=== PATIENT | female | born 1975 | race Caucasian/White ===

== ENCOUNTER 2024-03-10 01:02 | Emergency (ER) | payer SELFPAY ==
[2024-03-10] VITALS (7 sets, daily range): BP systolic 174–214; BP diastolic 91–119; PULSE 68–104; RESP 16–27; TEMP 36.6; O2SAT 95–97; BMI 32.5
--- NOTE | 2024-03-10 01:11 | ECG_ITS ---
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 Measurements Intervals [place] Rate: 70 P: 43 NV: 195 QRS: 25 QRSD: 85 T: 29 QT: 352 QTc: 381 Interpretive Statements SINUS RHYTHM POSSIBLE LEFT ATRIAL ENLARGEMENT [-0.1mV P-WAVE IN V1/V2] NONSPECIFIC T-WAVE ABNORMALITY No previous ECG available for comparison Electronically Signed On 03-11-2024 19:22:42 CDT by Samson Reed M.D. [id number] f
--- NOTE | 2024-03-10 01:12 | XRR_ITS ---
PROCEDURE INFORMATION: Exam: XR Chest Exam date and time: 03/10/2024 1:14 AM Age: 49 years old Clinical indication: Chest pressure; Patient HX: C/O central chest pain TECHNIQUE: Imaging protocol: Radiologic exam of the chest. Views: 1 view. COMPARISON: No relevant prior studies available. FINDINGS: Lungs: Clear, symmetrically inflated lungs. Pleural spaces: No pleural effusion. No pneumothorax. Heart/Mediastinum: Cardiac silhouette is normal in size for technique. Bones/joints: Age appropriate. XR/XR chest 1V portable [id number] IMPRESSION: No acute cardiopulmonary abnormality.
[2024-03-10 01:25] LABS: Basophils # 0.1 10^3/uL (0.0-0.1); Eosinophils # 0.2 10^3/uL (0.0-0.8); Eosinophils % 1.4 %; Hematocrit 39.2 % (36-47); Lymphocytes # 2.9 10^3/uL (0.8-4.8); Mean Corpuscular HGB Conc 33.4 g/dL (30-55); Mean Corpuscular Hemoglobin 29.2 pg (27-33); Mean Corpuscular Volume 87.5 fl (85-98); Mean Platelet Volume 10.4 fL (7.4-10.4); Monocytes # 1.1 10^3/uL (0.2-0.9); Monocytes % 9.1 %; Neutrophils # 8.11 10^3/uL (1.8-7.7); Neutrophils % 65.2 %; Nucleated Red Blood Cells % 0 %; Platelet Count 320 10^3/cmm (157-399); Red Blood Count 4.48 10^6/uL (3.85-5.65); Red Cell Distribution Width 13.6 % (12.1-15.1); White Blood Count 12.46 10^3/uL (3.29-11.43)
[2024-03-10] MEDS: lidocaine 2% viscous 15 ML, aluminum-mag hydrox-simethicon 30 ML, sucralfate oral liq 1 GM PO (01:37)
--- NOTE | 2024-03-10 01:37 | W.ED.CHESTPA ---
HPI - Chest Pain General: Chief Complaint: Chest Pain Stated Complaint: center chest pain into L arm vomiting Time Seen by Provider: 03/10/24 01:17 History of Present Illness: Patient presents to the ER with low chest pain/epigastric pain radiating into her back. Patient has had the nausea vomiting for about 2 days along with burning but she just started experiencing significant chest pain this afternoon Patient does not have any cardiac history. Patient tried taking Tums with no relief. Patient denies any shortness of breath or diaphoresis. Review of Systems General: Reports: 10 or more systems reviewed and unremarkable except in HPI and below Physical Exam Const: COMMON NORMALS: no acute distress, average body habitus, patient oriented x3, no limitations, healthy appearing, alert and well nourished HENMT: COMMON NORMALS: normocephalic, atraumatic, hearing grossly normal bilaterally, external ears normal, Normal external nose present and moist oral mucous membranes HEAD & SCALP: normocephalic and atraumatic NOSE: Normal external nose present EXTERNAL EAR: Yes external ears normal Neck/C-Spine: COMMON NORMALS: no JVD Chest: COMMONS NORMALS: normal inspection of the chest; negative for normal palpation of entire chest wall (Sternal palpation reproduces pain) Resp: COMMON NORMALS: normal respiratory effort, No retractions, No use of accessory muscles and clear to auscultation bilaterally AUSCULTATION: clear to auscultation bilaterally Cardio: COMMON NORMALS: no JVD, regular rate, regular rhythm, S1 normal heart sound present, S2 normal heart sound present, No gallops present (Cardio), No clicks present (Cardio), No murmurs present (Cardio) and No rub (Cardio) RATE: regular rate RHYTHM: regular rhythm HEART SOUNDS: S1 normal heart sound present and S2 normal heart sound present GI: COMMON NORMALS: Normal to inspection, nondistended, normoactive bowel sounds present, Soft to palpation, No hepatosplenomegaly present and no masses; negative for non-tender (Palpation of the epigastric area reproduces pain) PALPATION: Yes Soft to palpation and Yes No hepatosplenomegaly present Neuro: COMMON NORMALS: patient oriented x3 SENSORIUM/ORIENTATION: Yes alert Course Vital Signs: Vital signs: Vital Signs Temperature 98 F 03/10/24 01:14 Pulse Rate 90 03/10/24 02:36 Respiratory Rate 27 H 03/10/24 02:36 Blood Pressure 174/91 03/10/24 02:36 Pulse Oximetry 95 03/10/24 02:36 Oxygen Delivery Me thod Room Air 03/10/24 02:36 MDM - Chest Pain Medical Decision Making Patient lab work done oh essentially unremarkable, chest x-ray no acute abnormality, EKGs no ST segment changes, initial troponin was less than 6, 2-hour troponin was 6, patient was given GI cocktail and 20 mg of hydralazine this helped the patient's blood pressure and pain. Patient be discharged home with diagnosis of hypertension and GERD. Differential Diagnosis Unlikely acute massive pulmonary embolism, acute respiratory failure, acute myocardial infarction, cardiac arrest or sudden cardiac Medical Records I reviewed the patient's medical records. Lab Data I reviewed the patient's lab results. 03/10/24 01:20 03/10/24 01:20 Radiology Impressions Chest X-Ray 03/10/24 01:12 IMPRESSION: No acute cardiopulmonary abnormality. Laboratory Results WBC 12.46 10^3/uL (3.29-11.43) H 03/10/24 01:20 RBC 4.48 10^6/uL (3.85-5.65) 03/10/24 01:20 Hgb 13.10 g/dL (11.27-16.99) 03/10/24 01:20 Hct 39.2 % (36-47) 03/10/24 01:20 MCV 87.5 fl (85-98) 03/10/24 01:20 MCH 29.2 pg (27-33) 03/10/24 01:20 MCHC 33.4 g/dL (30-55) 03/10/24 01:20 RDW 13.6 % (12.1-15.1) 03/10/24 01:20 Plt Count 320 10^3/cmm (157-399) 03/10/24 01:20 MPV 10.4 fL (7.4-10.4) 03/10/24 01:20 Neut % (Auto) 65.2 % 03/10/24 01:20 Lymph % (Auto) 23.0 % 03/10/24 01:20 [place] % (Auto) 9.1 % 03/10/24 01:20 Eos % (Auto) 1.4 % 03/10/24 01:20 Baso % (Auto) 1.0 % 03/10/24 01:20 Neut # (Auto) 8.11 10^3/uL (1.8-7.7) H 03/10/24 01:20 Lymph # (Auto) 2.9 10^3/uL (0.8-4.8) 03/10/24 01:20 [place] # (Auto) 1.1 10^3/uL (0.2-0.9) H 03/10/24 01:20 Eos # (Auto) 0.2 10^3/uL (0.0-0.8) 03/10/24 01:20 Baso # (Auto) 0.1 10^3/uL (0.0-0.1) 03/10/24 01:20 Nucleated RBC % (auto) 0 % 03/10/24 01:20 Nucleated RBCs # 0.0 /100WBC 03/10/24 01:20 Sodium 139 mmol/L (136-145) 03/10/24 01:20 Potassium 4.0 mmol/L (3.5-5.1) 03/10/24 01:20 Chloride 101 mmol/L (98-107) 03/10/24 01:20 Carbon Dioxide 24 mmol/L (22-29) 03/10/24 01:20 Anion Gap 18.0 (5-19) 03/10/24 01:20 BUN 15 mg/dL (6-20) 03/10/24 01:20 Creatinine 0.8 mg/dL (0.5-0.9) 03/10/24 01:20 GFR Calculation 75.6 mL/min (90-130) L 03/10/24 01:20 Glucose 109 mg/dL (65-115) 03/10/24 01:20 Calculated Osmolality 289 mOsm/kg (285-295) 03/10/24 01:20 Calcium 9.0 mg/dL (8.5-10.5) 03/10/24 01:20 Troponin T Baseline < 6 ng/L (0-10) 03/10/24 01:20 Troponin T 120 Minute 6.00 ng/L (0-10) 03/10/24 03:20 Delta Troponin T 0.83743 ABS# (0-10) 03/10/24 03:20 Lipase 21 U/L (13-60) 03/10/24 01:20 Urine Color Yellow (Yellow) 03/10/24 01:42 Urine Appearance Cloudy (CLEAR) A 03/10/24 01:42 Urine pH 7 (5-7) 03/10/24 01:42 Ur Specific [place] 1.010 (1.005-1.030) 03/10/24 01:42 Urine Protein Neg (Negative) 03/10/24 01:42 Urine Glucose (UA) Norm (Normal) 03/10/24 01:42 Urine Ketones Negative (Negative) 03/10/24 01:42 Urine Blood Neg (Negative) 03/10/24 01:42 Urine Nitrate Negative (Negative) 03/10/24 01:42 Urine Bilirubin Neg (Negative) 03/10/24 01:42 Urine Urobilinogen Neg mg/dL (Negative) 03/10/24 01:42 Ur Leukocyte Esterase Negative (Negative) 03/10/24 01:42 Urine RBC 0-4 /hpf (0-2) H 03/10/24 01:42 Urine WBC 0-4 /hpf (0-5) H 03/10/24 01:42 Ur Squamous Epith Cells 0-4 /hpf (0-5) H 03/10/24 01:42 Amorphous Sediment 2+ /hpf 03/10/24 01:42 Urine Bacteria 3+ /hpf (NONE) H 03/10/24 01:42 All radiology interpretation(s) finalized by discharge Discharge Plan Discharge Patient Disposition: Home Clinical Impression: Atypical chest pain Gastritis Qualifiers: Gastritis type: unspecified gastritis Chronicity: acute Gastritis bleeding: without bleeding Qualified Code(s): K29.00 - Acute gastritis without bleeding Hypertension Qualifiers: Hypertension type: unspecified Qualified Code(s): I10 - Essential (primary) hypertension Condition: Stable Prescriptions: New famotidine [Pepcid] 40 mg tablet 40 mg PO BID Qty: 30 0RF Discharge Orders: Discharge ED (Routine); Ordered 03/10/24 Ordered By: Carlos Coffman Patient Instructions: Chest Pain - Noncardiac, Gastritis (DC), Diet for Stomach Ulcers and Gastritis (ED), Hypertension Activity Restrictions/Additional Instructions: Your evaluation in the ER did not show any acute cardiac cause for your chest pain. Is thought to be more gastritis or acid reflux type pain. Please take all your medicine as directed. Please keep a blood pressure log and take it with you to your next family practice appointment. Please follow-up with your family practice physician within the next 7 days for further evaluation and treatment. Coding Level of Care Code ED Circulation Librarian for Ronna Bullard
[2024-03-10 01:46] LABS: Troponin(5th) Baseline < 6 ng/L (0-10)
[2024-03-10] MEDS: hyDRALAzine 20 mg/mL INJ 1 mL IVP (01:46)
[2024-03-10 01:49] LABS: Blood Urea Nitrogen 15 mg/dL (6-20); Carbon Dioxide 24 mmol/L (22-29); Chloride 101 mmol/L (98-107); Creatinine Clr Calc Pharmacy 88.3807; Glomerular Filtration Rate 75.6 mL/min (90-130); Glucose 109 mg/dL (65-115); Lipase 21 U/L (13-60); Osmolality Calculated 289 mOsm/kg (285-295); Sodium 139 mmol/L (136-145)
[2024-03-10 02:01] LABS: Urine Appearance Cloudy (CLEAR); Urine Color Yellow (Yellow); pH Urine 7 (5-7)
[2024-03-10 02:02] LABS: Add Urine Microscopic? YES; Amorphous Sediment Urine 2+ /hpf; Bacteria Urine 3+ /hpf; Bilirubin Urine Neg (Negative); Blood Urine Neg (Negative); Glucose Urine UA Norm (Normal); Ketones Urine Negative (Negative); Leukocyte Esterase Urine Negative (Negative); Nitrate Urine Negative (Negative); Protein Urine Neg (Negative); RBC Urine 0-4 /hpf (0-2); Squamous Epithelial Cell Urine 0-4 /hpf (0-5); Urobilinogen Urine Neg (Negative); WBC Urine 0-4 /hpf (0-5)
[2024-03-10] MEDS: labetalol 5 mg/mL SDV 20mL 20 MG IVP (02:31)
[2024-03-10 03:50] LABS: Troponin 5 2HR Delta 0.00001 ABS# (0-10)
--- NOTE | 2024-03-10 05:10 | ECG_ITS ---
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 Measurements Intervals [place] Rate: 71 P: 55 NV: 196 QRS: 43 QRSD: 83 T: 43 QT: 323 QTc: 353 Interpretive Statements SINUS RHYTHM POSSIBLE LEFT ATRIAL ENLARGEMENT [-0.1mV P-WAVE IN V1/V2] NONSPECIFIC ST & T-WAVE ABNORMALITY Compared to ECG 03/10/2024 01:11:23 No significant changes Electronically Signed On 03-11-2024 19:22:14 CDT by Samson Reed M.D. [id number]
== END 2024-03-10 04:21 | disposition home or self-care (01) ==
PROVIDERS: Emergency Provider Emergency Medicine
DX: R07.89 Other chest pain (principal); K29.00 Acute gastritis without bleeding; I10 Essential (primary) hypertension
CPT/HCPCS: 71045; 80048; 81001; 83690; 84484; 85025; 93005; 96374; 96375; 99285; J0360; J3490